=== PATIENT | male | born 1970 | race African-American/Black ===

== ENCOUNTER 2017-05-30 10:53 | Emergency (ER) | payer OTHER ==
[~2017-05-30] VITALS: Ht 182.9 cm; Wt 61.2 kg
[2017-05-30 10:58] VITALS: BP 102/96
[2017-05-30 11:43] LABS: HEMATOCRIT 43.3 % (38.0-50.0); MCH 24.5 PG (29.0-34.0); MCHC 32.3 G/DL (30.0-36.0); MCV 75.8 FL (86-99); MEAN PLAT.VOLUME 9.8 uM^3 (9.0-12.4); PLATELET COUNT 246 K/uL (156-360); RBC DIS.WIDTH-CV 15.6 % (11.8-14.6); RBC DIS.WIDTH-SD 42.5 % (39-53); RED BLOOD COUNT 5.71 M/uL (4.00-5.50); WHITE BLOOD COUNT 7.2 K/uL (4.1-10.2)
[2017-05-30 11:53] LABS: CHLORIDE 106 mEq/L (99-109); POTASSIUM 4.5 mEq/L (3.7-5.4); SODIUM 142 mEq/L (136-147)
[2017-05-30 11:55] LABS: GLUCOSE 88 mg/dL (70-99)
[2017-05-30 11:57] LABS: ANION GAP 6 MEQ/L (2-14); TOTAL BILIRUBIN 0.5 mg/dL (0.0-1.0)
[2017-05-30 11:59] LABS: ALKALINE PHOSPHATASE 76 IU/L (3-129); GFR ESTIMATE (CALCULATED) > 59 mL/min/
[2017-05-30 12:00] LABS: UREA NITROGEN (BUN) 8 mg/dL (9-23)
[2017-05-30 12:02] LABS: LIPASE 39 U/L (1.0-51.0)
== END 2017-05-30 12:00 | disposition left against medical advice (07) ==
LOC: EME 10:53
DX: M25.522 Pain in left elbow (principal); Z53.21 Procedure and treatment not carried out due to patient leaving prior to being seen by health care provider
CPT/HCPCS: 80053; 81003; 83690; 85027